=== PATIENT | female | born 1965 | race Caucasian/White ===

== ENCOUNTER 2020-02-07 10:54 | Emergency (ER) | payer OTHER, SELFPAY ==
[2020-02-07 11:07] VITALS: BP 128/77; PULSE 79; RESP 16; TEMP 37.1; O2SAT 100
--- NOTE | 2020-02-07 11:09 | ED.GENADULT ---
HPI - General Adult General Chief complaint: Skin/Abscess/Foreign Body Stated complaint: poison [place] Time Seen by Provider: 02/07/20 11:09 Source: patient Mode of arrival: ambulatory Limitations: no limitations History of Present Illness HPI narrative: 54-year-old female patient [facility] with complaints of a rash x2 days. Patient states that she was out pulling weeds and thinks she was exposed to poison [place]. Patient states she has had poison [place] before the past. Patient complains of an itchy rash noted to the left arm, the neck, behind bilateral ears, face, swelling to bilateral eyes, on the buttocks as well as behind bilateral legs. Patient states she has tried some steroid cream as well as some Benadryl for her symptoms so far. Related Data Allergies Allergy/AdvReac Type Severity Reaction Status Date / Time No Known Allergies Allergy Unknown Verified 02/07/20 11:13 Review of Systems Review of Systems: Narrative: CONSTITUTIONAL: Denies fever, chills, or sweats. EYES: Denies visual changes, redness, or discharge. ENT: Denies rhinorrhea, congestion, sore throat, or otalgia. CARDIOVASCULAR: Denies chest pain, palpitations, or edema. RESPIRATORY: Denies cough or dyspnea. GASTROINTESTINAL: Denies abdominal pain, nausea, vomiting, or diarrhea. GENITOURINARY: Denies dysuria or hematuria. SKIN: Positive rash with itching x2 days MUSCULOSKELETAL: Denies back pain, joint pain, or myalgia. NEUROLOGIC: Denies headache, numbness, or weakness. PSYCHIATRIC: Denies anxiety or depression. PMFSH Past Medical History Medical History Migraines Surgical History Surgical History History of orthopedic surgery Bilateral meniscus tears x2 surgeries Hx of tonsillectomy Comments At the time of my signature I agree with nursing past medical history, surgical, social, and family history. There is no relevant family history pertinent to the presenting complaint. Exam Narrative: Exam Narrative: GENERAL: Well-appearing, well-nourished, and in no acute distress. HEAD: Normocephalic, atraumatic. EYES: PERRLA and EOMI. patient does have some swelling noted to bilateral eyelids. ENT: Nares clear, no rhinorrhea or epistaxis. Mucous membranes moist. NECK: Supple. No lymphadenopathy CHEST: Clear to auscultation. No respiratory distress. HEART: Regular rate and rhythm. No murmur heard. Normal peripheral pulses. ABDOMEN: Soft, nontender, nondistended, normal active bowel sounds. EXTREMITIES: Normal range of motion. No edema. SKIN: Patient has a blotchy red rash noted to the left arm, similar rash noted behind right ear, right lateral side of the neck, and on the upper chest. NEURO: No focal deficits. Alert and oriented x3. Course Vital Signs Vital signs: Vital Signs Temperature 37.1 C 02/07/20 11:07 Pulse Rate 79 02/07/20 11:07 Respiratory Rate 16 02/07/20 11:07 Blood Pressure 128/77 02/07/20 11:07 Pulse Oximetry 100 02/07/20 11:07 Temperature 37.1 C 02/07/20 11:07 Pulse Rate 79 02/07/20 11:07 Respiratory Rate 16 02/07/20 11:07 Blood Pressure 128/77 02/07/20 11:07 Pulse Oximetry 100 02/07/20 11:07 Vital signs reviewed. Medical Decision Making Differential Diagnosis Differential Diagnosis: Differential diagnosis: Contact dermatitis, poison [place], poison [place], psoriasis, eczema, allergic reaction, drug reaction, scabies, tinea syphilis, lung disease, viral exanthema, pityriasis, erythema multiforme. Discussed with patient that it does appear that this is a poison [place] rash. Discussed with her that we will give her some oral steroid since it is on the face as well as some topical steroids that she can use on her extremities and trunk. Patient verbalized understanding denies any other questions or concerns at this time. Vital Signs Vital Signs: Vital Signs Temperature 37.1 C 02/06
== END 2020-02-07 11:20 | disposition home or self-care (01) ==
PROVIDERS: Emergency Provider Nurse Practitioner Family; PCP Family Medicine
DX: L23.7 Allergic contact dermatitis due to plants, except food (principal)
CPT/HCPCS: 99203; G0463

== ENCOUNTER 2022-05-03 15:58 | Emergency (ER) | payer OTHER, SELFPAY ==
[2022-05-03 16:02] VITALS: BP 135/71; PULSE 85; RESP 16; TEMP 36.7; O2SAT 100
--- NOTE | 2022-05-03 16:02 | ED.SKABFB ---
HPI - Skin/Abscess/Foreign Bdy General Chief complaint: Skin/Abscess/Foreign Body Stated complaint: Bee Sting left hand Time Seen by Provider: 05/03/22 16:02 Source: patient and RN notes reviewed History of Present Illness HPI narrative: Patient is a 56-year-old female who presents the urgent care with complaints of a wasp sting to the left hand. Patient states that happened last night and she did call her primary care doctor today. Patient was unaware but her primary care doctor did call her and triamcinolone cream as well as a Medrol Dosepak. Patient has not started the medication. Patient states she is been taking Benadryl for the itch and the using ice and elevation. States that the redness and swelling has gotten worse since last night. Denies any fever, chills, nausea or vomiting. Denies any shortness of breath or difficulty swallowing. Patient is right-hand dominant. no other acute complaints. No acute distress noted. Patient aware of the plan of care. Some parts of this dictation were generated by voice recognition software and may contain typographical and/or grammatical inaccuracies. Related Data Home Medications Medication Instructions Recorded Confirmed ibuprofen 800 mg tablet 1 tablet PO Q8H PRN pain 05/03/22 05/03/22 phentermine 30 mg capsule 1 cap PO DAILY 05/03/22 05/03/22 Allergies Allergy/AdvReac Type Severity Reaction Status Date / Time No Known Allergies Allergy Unknown Verified 05/03/22 16:02 Review of Systems Review of Systems: CONSTITUTIONAL: Denies fever, chills, or sweats. EYES: Denies visual changes, redness, or discharge. ENT: Denies rhinorrhea, congestion, sore throat, or otalgia. CARDIOVASCULAR: Denies chest pain, palpitations, or edema. RESPIRATORY: Denies cough or dyspnea. GASTROINTESTINAL: Denies abdominal pain, nausea, vomiting, or diarrhea. GENITOURINARY: Denies dysuria or hematuria. SKIN: Reports of redness and swelling to the left hand MUSCULOSKELETAL: Reports of redness, swelling and pain to the left hand due to bee sting NEUROLOGIC: Denies headache, numbness, or weakness. All other systems reviewed are negative, except as documented in HPI. [facility] Past Medical History Medical History (Updated 05/03/22 @ 16:24 by ROGER Clark) Migraines Surgical History Surgical History History of orthopedic surgery Bilateral meniscus tears x2 surgeries Hx of tonsillectomy Comments At the time of my signature, I reviewed and agree with the nursing past medical, surgical, social, and family history. There is no relevant family history pertinent to the patient complaint. Exam Narrative: GENERAL: This is a well-nourished, well-developed patient, in no apparent distress. HEAD: normocephalic, atraumatic. EYES: PERRL. Sclera clear/white. Vision is grossly intact. EARS: External ears normal NOSE: External nose normal with no obvious nasal discharge, nares without redness, no rhinorrhea. THROAT: Mucous membranes moist, posterior pharynx clear. Patent airway NECK: Neck supple CARDIOVASCULAR: Regular rate and rhythm without murmurs, gallops, or rubs. RESPIRATORY: Clear to auscultation. Breath sounds equal bilaterally. No wheezes, rales, or rhonchi. SKIN: See extremity. Warm, intact with no suspicious lesions or rash, good texture and turgor. NEURO: awake, alert, and oriented to person, place and time. There were no obvious focal neurologic abnormalities. EXTREMITIES: Moderate 2+ pitting edema to the left hand with redness extending to the mid left forearm. Range of motion to left hand decreased due to swelling and pain. Positive strong left radial pulse with capillary refill less than 2 seconds. Course Course Level of Care: Express Care Visit Vital Signs Vital signs: Vital Signs Temperature 98.1 F 05/03/22 16:02 Pulse Rate 85 05/03/22 16:02 Respiratory Rate 16 05/03/22 16:02 Blood Pressure 135/71 05/03/22
[2022-05-03] MEDS: predniSONE 20 MG TABLET 60 MG PO (16:21)
== END 2022-05-03 16:45 | disposition home or self-care (01) ==
PROVIDERS: Emergency Provider Nurse Practitioner Family; PCP Internal Medicine
DX: T63.461A Toxic effect of venom of wasps, accidental (unintentional), initial encounter (principal); L03.114 Cellulitis of left upper limb
CPT/HCPCS: 99213; G0463; J7512

== ENCOUNTER 2022-12-24 15:59 | Emergency (ER) | payer OTHER, SELFPAY ==
--- NOTE | 2022-12-24 16:02 | ED.GENADULT ---
HPI - General Adult General Chief complaint: Urogenital-Female Stated complaint: Urinary Problem Source: patient and RN notes reviewed History of Present Illness HPI narrative: 57-year-old female presents urgent care with complaints of dysuria this started this morning. Patient reports for urination, urinary frequency and urgency. Patient states she did take daughter's amoxicillin pills this morning. Denies any abdominal pain, fevers, chills, back pain or vomiting. Some parts of this dictation were generated by voice recognition software and may contain typographical and/or grammatical inaccuracies. Related Data Home Medications Medication Instructions Recorded Confirmed dextroamphetamine-amphetamine 5 mg 5 mg PO DIRECTED 12/24/22 12/24/22 tablet Allergies Allergy/AdvReac Type Severity Reaction Status Date / Time No Known Allergies Allergy Unknown Verified 12/24/22 16:07 Review of Systems Review of Systems: CONSTITUTIONAL: Denies fever, chills, or sweats. EYES: Denies visual changes, redness, or discharge. ENT: Denies otalgia and sore throat CARDIOVASCULAR: Denies chest pain, palpitations, or edema. RESPIRATORY: Denies cough or dyspnea. GASTROINTESTINAL: Denies abdominal pain, nausea, vomiting, or diarrhea. GENITOURINARY: Reports dysuria SKIN: Denies rash or itching. MUSCULOSKELETAL: Denies back pain, joint pain, or myalgia. NEUROLOGIC: Denies headache, numbness, or weakness. [facility] Past Medical History Medical History (Updated 12/24/22 @ 16:32 by Alice Torres APRN) Migraines Surgical History Surgical History History of orthopedic surgery Bilateral meniscus tears x2 surgeries Hx of tonsillectomy Comments At the time of my signature, I reviewed and agree with the nursing past medical, surgical, social, and family history. There is no relevant family history pertinent to the patient complaint. Exam Narrative: GENERAL: This is a well-nourished, well-developed patient, in no apparent distress. HEAD: normocephalic, atraumatic. EYES: PERRL. Sclera clear/white. Vision is grossly intact. EARS: External ears normal, auditory canals clear and without drainage, TMs normal without perforation. Hearing grossly intact. NOSE: External nose normal with no obvious nasal discharge, nares without redness, no rhinorrhea. THROAT: Mucous membranes moist, posterior pharynx clear. NECK: Neck supple, non-tender without lymphadenopathy, masses or thyromegaly. CARDIOVASCULAR: Regular rate and rhythm without murmurs, gallops, or rubs. RESPIRATORY: Clear to auscultation. Breath sounds equal bilaterally. No wheezes, rales, or rhonchi. GASTROINTESTINAL: Abdomen soft, non-tender, nondistended. Bowel sounds are active. No hepato-splenomegaly, or palpable masses. No guarding. SKIN: warm, intact with no suspicious lesions or rash, good texture and turgor. NEURO: awake, alert, and oriented to person, place and time. There were no obvious focal neurologic abnormalities. Course Course Level of Care: Express Care Visit Vital Signs Vital signs: Vital Signs Temperature 98.1 F 12/24/22 16:05 Pulse Rate 79 12/24/22 16:05 Respiratory Rate 18 12/24/22 16:05 Blood Pressure 129/74 12/24/22 16:05 Pulse Oximetry 100 12/24/22 16:05 Oxygen Delivery Room Air 12/24/22 16:05 Temperature 98.1 F 12/24/22 16:05 Pulse Rate 79 12/24/22 16:05 Respiratory Rate 18 12/24/22 16:05 Blood Pressure 129/74 12/24/22 16:05 Pulse Oximetry 100 12/24/22 16:05 Oxygen Delivery Room Air 12/24/22 16:05 Reviewed Medical Decision Making MDM Narrative Medical decision making narrative: Take antibiotics as directed. Get plenty of fluids. Go to the emergency department with any new or worsening symptoms. Follow-up with your primary care physician in 2-5 days. Differential Diagnosis Differential Diagnosis: UTI, cystitis, dysuria Vital Signs Vital Sig
[2022-12-24 16:05] VITALS: BP 129/74; PULSE 79; RESP 18; TEMP 36.7; O2SAT 100
== END 2022-12-24 16:38 | disposition home or self-care (01) ==
PROVIDERS: Emergency Provider Nurse Practitioner Family; PCP Internal Medicine
DX: N39.0 Urinary tract infection, site not specified (principal)
CPT/HCPCS: 81003; 87077; 87086; 87186; 99213; G0463

== ENCOUNTER 2024-06-10 18:03 | Emergency (ER) | payer OTHER, SELFPAY ==
[2024-06-10 18:14] VITALS: BP 136/60; PULSE 78; RESP 16; TEMP 36.4; O2SAT 100
--- NOTE | 2024-06-10 18:46 | ED.URI ---
HPI - URI/Sore Throat General Chief Complaint: Upper Respiratory Infection Stated Complaint: Shortness of Breath Time Seen by Provider: 06/10/24 18:59 Source: patient and RN notes reviewed Mode of arrival: ambulatory Limitations: no limitations History of Present Illness HPI Narrative: 58-year-old female presents with concern for one-week history of wheezing. Reports she has been using her albuterol inhaler 4-6 times daily without relief. Reports mild cough. Reports today she felt tired and generally did feel well. She reports she was recently diagnosed with asthma in [place] elicited complaint: cough Related Data Home Medications Medication Instructions Recorded Confirmed albuterol sulfate 90 mcg/actuation inhalation 06/10/24 aerosol inhaler fexofenadine 180 mg tablet mg 06/10/24 Allergies Allergy/AdvReac Type Severity Reaction Status Date / Time No Known Allergies Allergy Unknown Verified 12/24/22 16:07 Review of Systems Review of Systems: CONSTITUTIONAL: Reports malaise, fatigue. Denies chills, sweats, or fever. EYES: Denies visual changes, redness, or discharge. ENT: Denies rhinorrhea, congestion, sinus pain, otalgia and sore throat. CARDIOVASCULAR: Denies chest pain, palpitations, or edema. RESPIRATORY: Reports cough, wheezing, dyspnea. GASTROINTESTINAL: Denies abdominal pain, nausea, vomiting, diarrhea SKIN: Denies rash or itching. MUSCULOSKELETAL: Denies myalgia. NEUROLOGIC: Denies headache. All systems reviewed & are unremarkable except as noted in HPI and below PMFSH Past Medical History Medical History (Updated 06/10/24 @ 19:05 by Drea Wall NP) Migraines Surgical History Surgical History History of orthopedic surgery Bilateral meniscus tears x2 surgeries Hx of tonsillectomy Comments At time of signature, agree with nursing past medical, surgical, social and family history. There is no relevant family history pertinent to the presenting complaint Exam Narrative: GENERAL: Well-appearing, well-nourished, and in no acute distress. HEAD: Normocephalic EYES: PERRLA, conjunctivae clear ENT: Nares clear, turbinates edematous and erythematous, clear discharge. Mucous membranes moist. TM pearly hernandez with dull light reflex bilaterally; no tragal tenderness. Oropharynx not erythematous without lesions. Tonsils not enlarged and without exudate, no drooling, no hoarseness, no trismus, uvula midline. NECK: Supple. No lymphadenopathy CHEST: Scattered expiratory wheeze, otherwise Clear to auscultation, breath sounds equal. No rhonchi, rales, or stridor. No respiratory distress, speaks in full sentences. HEART: Regular rate and rhythm. No murmur heard. SKIN: Warm, dry, no rash. NEURO: Alert and oriented x3. PSYCH: Normal mood and affect Course Course Emergency Course: Patient is aware of diagnosis, understands and agrees to treatment plan. Anticipatory guidance given. Patient agrees to follow-up as directed and is aware of reasons to seek care at the emergency department. Portions of this record may have been created with voice recognition software Level of Care: Express Care Visit Vital Signs Vital signs: Vital Signs Temperature 97.5 F L 06/10/24 18:14 Pulse Rate 78 06/10/24 18:14 Respiratory Rate 16 06/10/24 18:14 Blood Pressure 136/60 06/10/24 18:14 Pulse Oximetry 100 06/10/24 18:14 Oxygen Delivery Room Air 06/10/24 18:14 Temperature 97.5 F L 06/10/24 18:14 Pulse Rate 78 06/10/24 18:14 Respiratory Rate 16 06/10/24 18:14 Blood Pressure 136/60 06/10/24 18:14 Pulse Oximetry 100 06/10/24 18:14 Oxygen Delivery Room Air 06/10/24 18:14 Reviewed. MDM - URI/Sore Throat MDM Narrative Medical decision making narrative: Differential diagnosis considered: Lopez virus, strep pharyngitis, allergic rhinitis, upper respiratory tract infection, sinusitis, rhinosinusitis, nasopharyngitis.
== END 2024-06-10 19:12 | disposition home or self-care (01) ==
PROVIDERS: Emergency Provider Nurse Practitioner; PCP Internal Medicine
DX: J45.901 Unspecified asthma with (acute) exacerbation (principal)
CPT/HCPCS: 99213; G0463

== ENCOUNTER 2024-08-15 12:05 | Emergency (ER) | payer OTHER, SELFPAY ==
[2024-08-15 12:10] VITALS: BP 144/84; PULSE 75; RESP 18; TEMP 37.3; O2SAT 99
--- NOTE | 2024-08-15 12:25 | ED.URI ---
HPI - URI/Sore Throat General Chief Complaint: Upper Respiratory Infection Stated Complaint: Wheezing and Shortness of Breath Time Seen by Provider: 08/15/24 12:25 Source: patient Mode of arrival: ambulatory Limitations: no limitations History of Present Illness HPI Narrative: 58-year-old female with a recent diagnosis of asthma presented for complaint of cough and wheezing worsening over the past week. Endorses occasional shortness of breath with exertion. She has been using albuterol inhaler but now Needs to picker and sorter load and unload a new prescription. Denies Nausea, vomiting, diarrhea, lethargy, fevers or chills. Says symptoms started due to seasonal allergies, nasal congestion is now improving. Related Data Home Medications Medication Instructions Recorded Confirmed albuterol sulfate 90 mcg/actuation inhalation 06/10/24 aerosol inhaler albuterol sulfate 2.5 mg/3 mL mg 08/15/24 (0.083 %) solution for nebulization fexofenadine 180 mg tablet mg 08/15/24 Allergies Allergy/AdvReac Type Severity Reaction Status Date / Time No Known Allergies Allergy Unknown Verified 12/24/22 16:07 Review of Systems Review of Systems: CONSTITUTIONAL: Denies body aches, fever, chills, or sweats. EYES: Denies visual changes, redness, or discharge. ENT: Denies rhinorrhea, congestion, sore throat, or otalgia. CARDIOVASCULAR: Denies chest pain, palpitations, or edema. RESPIRATORY: Reports cough, sob, wheezing. GASTROINTESTINAL: Denies abdominal pain, nausea, vomiting, or diarrhea. SKIN: Denies rash, itching, or wounds. MUSCULOSKELETAL: Denies back pain, joint pain, or myalgia. NEUROLOGIC: Denies headache, numbness, tingling, or weakness. All systems reviewed & are unremarkable except as noted in HPI and below PMFSH Past Medical History Medical History (Updated 08/15/24 @ 12:52 by Fanny Rascon APRN) Asthma Migraines Surgical History Surgical History History of orthopedic surgery Bilateral meniscus tears x2 surgeries Hx of tonsillectomy Comments At time of signature, I have reviewed and agree with nursing past medical, surgical, social and family history unless otherwise noted. Please see nursing chart for further information. There is no relevant family history pertinent to the presenting complaint Exam Narrative: GENERAL: Well-appearing, in no acute distress. EYES: EOMI. No redness or drainage. Conjunctivae normal. ENT: Mucous membranes pink and moist. No rhinorrhea. TMs normal bilaterally. Throat normal. Uvula midline. NECK: Normal AROM. Supple. CHEST: No respiratory distress. Wheezing to Left langley. No cough. Speaks full sentences. HEART: Regular rate and rhythm. No murmur appreciated. ABDOMEN: Soft, nontender, nondistended, normal active bowel sounds. SKIN: Warm, dry, no rash. Capillary refill normal. Normal skin turgor. NEURO: Alert and oriented x3. Gait steady. PSYCH: Normal affect. Course Course Emergency Course: Patient is aware of diagnosis, understands and agrees to treatment plan. Anticipatory guidance given. Patient agrees to follow-up as directed and is aware of reasons to seek care at the emergency department. Portions of this record may have been created with voice recognition software Level of Care: Express Care Visit Vital Signs Vital signs: Vital Signs Temperature 99.1 F 08/15/24 12:10 Pulse Rate 75 08/15/24 12:10 Respiratory Rate 18 08/15/24 12:10 Blood Pressure 144/84 H 08/15/24 12:10 Pulse Oximetry 99 08/15/24 12:10 Oxygen Delivery Room Air 08/15/24 12:10 Temperature 99.1 F 08/15/24 12:10 Pulse Rate 75 08/15/24 12:10 Respiratory Rate 18 08/15/24 12:10 Blood Pressure 144/84 H 08/15/24 12:10 Pulse Oximetry 99 08/15/24 12:10 Oxygen Delivery Room Air 08/15/24 12:10 MDM - URI/Sore Throat MDM Narrative Medical decision making narrative: Discussed physical exam fin
== END 2024-08-15 12:39 | disposition home or self-care (01) ==
PROVIDERS: Emergency Provider Nurse Practitioner Family; PCP Internal Medicine
DX: J40 Bronchitis, not specified as acute or chronic (principal)
CPT/HCPCS: 99213; G0463

== ENCOUNTER 2025-07-10 11:00 | Emergency (ER) | payer OTHER, SELFPAY ==
--- OUTSIDE RECORDS SUMMARY | 2025-07-10 11:03 | XMS_ITS | Encounter Summary ---
Author Organization [facility] Address [address] [place] [address] Phone Care Team Providers Care Vacuum Cleaner Repair Person Name Role Phone Darin Billings MD Primary Care Provider [phone] Andie Salazar APRN, [employer]URNER Unavailable + [phone] Reason for Visit * Reason Comments Medication Refill Encounter Details Date Type Department Care Team (Late st Contact Info) Description 06/13/2024 Refill [facility] - Internal Medicine - [place] [address] [place] [phone] Darin Billings MD [address] [place] [address] Medication Refill Social History Tobacco Use Types Packs/Day Years Used Date Smoking Tobacco: Never Passive Smoke Exposure: Past Smokeless Tobacco: Never Alcohol Use Standard Drinks/Week Comments Yes 0 (1 standard drink = 0.6 oz pur e alcohol) [facility] Utilities Answer Date Recorded In the past 12 months has [employer] gas, oil, or water company threatened to shut off services in your home? No 12/09/2023 Social Connection and Isolation Panel Answer Date Recorded In a typical week, how many times do you talk on the phone with family, friends, or neighbors? More than three times a week 12/09/2023 How often do you get togethe r with friends or relatives? More than three times a week 12/09/2023 How often do you attend [facility] or christian services? More than 4 times per year 12/09/2023 Do you belong to any clubs o r organizations such as gnosticist groups, unions, fraternal or athletic groups, or school groups? Yes 12/09/2023 How often do you attend meet ings of the clubs or organizations you belong to? More than 4 times per year 12/09/2023 Are you , , di vorced, , never , or living with a partner? 12/09/2023 AUDIT-C Answer Date Recorded Q1: How often do you have a drink containing alc ohol? Monthly or less 12/09/2023 Q2: How many drinks containi ng alcohol do you have on a typical day when you are drinking? 1 or 2 12/09/2023 Q3: How often do you have si x or more drinks on one occasion? Less than monthly 12/09/2023 Overall Financial Resource Strain (CARDIA) Answe r Date Recorded How hard is it for you to pa y for the very basics like food, housing, medical care, and heating? Not hard at all 12/09/2023 PHQ-2 Answer Date Recorded Total Score - Questions 1-9 0 04/2024 [facility] - Occupational Stress Questionnaire Answer Date Recorded Do you feel stress - tense, restless, nervous, or anxious, or unable to sleep at night because your mind is troubled all the time - these days? Not at all 12/09/2023 Exercise Vital Sign Answer Date Recorde d On average, how many days pe r week do you engage in moderate to strenuous exercise (like a brisk walk)? 1 day 12/09/2023 On average, how many minutes do you engage in exercise at this level? 30 min 12/09/2023 Hunger Vital Sign Answer Date Recorded Within the past 12 months, y ou worried that your food would run out before you got the money to buy more. Never true 12/09/19 24 Within the past 12 months, t he food you bought just didn't last and you didn't have money to get more. Never true 12/09/2023 PRAPARE - Transportation Answer Date Re corded In the past 12 months, has l ack of transportation kept you from medical appointments or from getting medications? No 03/2024 In the past 12 months, has l ack of transportation kept you from meetings, work, or from getting things needed for daily living? No 12/09/2023 Housing Stability Vital Sign Answer Gil e Recorded In the last 12 months, was t here a time when you were not able to pay the mortgage or rent on time? No 12/09/2023 In the last 12 months, how many places have you lived? 3 12/09/2023 In the last 12 months, was t here a time when you did not have a steady place to sleep or slept in a fdc (including now)? No 12/09/2023 Sexually Active Control Partners Comments Yes Comments No Sex and Gender Information Value Date Recorded Sex Assigned at Not on file Legal Sex Female 9:29 PM CDT Gender Identity Not on file Sexual Orientation Not on file documented as of this encounter Miscellaneous Notes * Telephone Encounter - Darin Billings MD - 06/15/2024 10:28 AM CDT Rx already sent * Telephone Encounter - Drea Dudley RN - 06/15/2024 8:56 AM CDT Medication failed the protocol, provider to review and approve the medication order if appropriate. Requested Prescriptions Pending Prescriptions Disp Refills ibuprofen (MOTRIN) 800 MG Tablet [Pharmacy Med Name: IBUPROFEN 800 MG TABLET] 90 Tablet 2 Sig: Take 1 Tablet by mouth every 8 hours as needed for Mild or more severe pain. NSAIDs Protocol Failed - 06/13/2024 11:45 AM Failed - Normal serum creatinine in past 12 months No results found for: CREATININE Failed - AST less than 55 or ALT less than 90 in past 12 months No results found for: SGOTAST No results found for: SGPTALT Failed - HGB greater than 10 or HCT greater than 30 in past 12 months No results found for: HEMOGLOBIN, HEMATOCRIT Passed - Visit with relevant provider in past 12 months or upcoming 90 days Recent Visits Date Type Provider Dept 03/09/24 [facility]23 Office Visit Darin Billings MD [facility] 09/02/23 Office Visit Darin Billings MD [facility] [place] Showing recent visits within past 365 days and meeting all other requirements Today's Visits Date Type Provider Dept 06/15/24 Appointment Darin Billings MD [facility] Showing today's visits and meeting all other requirements Future Appointments No visits were found meeting these conditions. Showing future appointments within next 90 days and meeting all other requirements Passed - No matching NSAID med order in past 45 days No matching medication orders between 05/01/2024 8:56 AM and 06/15/2024 8:56 AM documented in this encounter Plan of Treatment Upcoming Encounters Date Type Department Care Team (Late st Contact Info) Description 07/22/2025 1:40 PM CDT Office Visit [facility] - Primary Care - [place] [address] [place] [address] Darin Billings MD [address] [place] [address] documented as of this encounter Visit Diagnoses Not on filedocumented in this encounter Additional Health Concerns Assessment Noted Time PHQ-9 Depression Total Score: 0 03/09/20 24 8:45 AM CDT documented as of this encounter Care Teams Vacuum Cleaner Repair Person Relationship Specialty Start Date End Date Darin Billings MD PCP - General Internal Medicine 07/04/20 Andie Salazar APRN, RETORT KIL[facility]NER [address] [place] [address] Nurse Practitioner Advanced Practice Nurse 11/07/22 documented as of this encounter
--- OUTSIDE RECORDS SUMMARY | 2025-07-10 11:03 | XMS_ITS | Encounter Summary ---
Author Organization [facility] Address 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
--- OUTSIDE RECORDS SUMMARY | 2025-07-10 11:03 | XMS_ITS | Encounter Summary ---
Author Organization [facility] Address [address] [place] [address] Care Team Providers Care Rail Maintenance Worker Name Role Phone Unavailable Primary Care Provider Unavailabl e Encounter Details Date Type Department Care Team (Late st Contact Info) Description 07/12/2004 Outpatient Historical [facility] Maternal and Ground Floor [facility] [address] [facility] [place] [address] Linda Valentin MD [address] [place] [address] Social History Tobacco Use Types Packs/Day Years Used Date Smoking Tobacco: Never Assessed Comments Unknown Sex and Gender Information Value Date Recorded Sex Assigned at Not on file Legal Sex Female 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
--- OUTSIDE RECORDS SUMMARY | 2025-07-10 11:03 | XMS_ITS | Encounter Summary ---
Author Organization [facility] Address 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
--- OUTSIDE RECORDS SUMMARY | 2025-07-10 11:03 | XMS_ITS | Clinical Summary ---
Author Organization [facility] Address [address] [place] [address] Phone Care Team Providers Care Technical Testing Engineer Name Role Phone Unavailable Primary Care Provider Unavailabl e Social History Tobacco Use Types Packs/Day Years Used Date Smoking Tobacco: Never Assessed Comments Unknown Sex and Gender Information Value Date Recorded Sex Assigned at Not on file Legal Sex Female 5:01 AM APPLICATION COORDINATOR Gender Identity Not on file Sexual Orientation Not on file Plan of Treatment Health Maintenance Due Date Last Done Comments DTAP/TDAP/TD VACCINES (1 - Tdap) 1984 HEPATITIS B VACCINES (1 of 3 - 19+ 3-dose series) 02/1984 HPV/Cotest (21-29) 1986 CERVICAL CANCER SCREENING 1995 HPV/Cotest (30-65) 1995 PAP SMEAR 1995 BREAST CANCER SCREENING 2005 COLORECTAL SCREENING 2010 Colorectal Cancer Screening 2010 FIT-DNA Q 3 years 2010 FIT/FOBT Q 1 year 2010 Flex Sig/CT Colonography Q 5 years 2010 ZOSTER VACCINE (1 of 2) 2015 INFLUENZA VACCINE (#1) 2025
--- OUTSIDE RECORDS SUMMARY | 2025-07-10 11:03 | XMS_ITS | Encounter Summary ---
Author Organization [facility] Address [address] [place] [address] Care Team Providers Care Flowers Salesperson Name Role Phone Unavailable Primary Care Provider Unavailabl e Encounter Details Date Type Department Care Team (Late st Contact Info) Description 06/09/[address] 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
--- OUTSIDE RECORDS SUMMARY | 2025-07-10 11:03 | XMS_ITS | Encounter Summary ---
Author Organization [facility] Address [address] [place] [address] Phone Care Team Providers Care Kiln Furniture Saw Tender Name Role Phone Darin Billings MD Primary Care Provider Andie Salazar APRN, [employer] Unavailable + [phone] Reason for Visit * Reason Comments Medication Refill Encounter Details Date Type Department Care Team (Late st Contact Info) Description 10/06/2020 [facility] - [place] [address] [place] [phone] Darin Billings MD [address] [place] [address] Medication Refill Social History Tobacco Use Types Packs/Day Years Used Date Smoking Tobacco: Never Smokeless Tobacco: Never PHQ-2 Answer Date Recorded Total Score - Questions 1-9 0 08/04 Comments No Sex and Gender Information Value Date Recorded Sex Assigned at Not on file Legal Sex Female 9:29 PM CDT Gender Identity Not on file Sexual Orientation Not on file documented as of this encounter Miscellaneous Notes * Telephone Encounter - Chayito Ernst RN - 10/06/2020 7:48 AM CST Please review and sign. ER BREWERY documented in this encounter Plan of Treatment Upcoming Encounters Date Type Department Care Team (Late st Contact Info) Description 07/22/2025 1:40 PM CDT Office Visit [facility] - Primary Care - [place] [address] [place] [phone] Darin Billings MD [address] [place] [address] documented as of this encounter Visit Diagnoses Not on filedocumented in this encounter Additional Health Concerns Infection Onset Date Last Indicated Resolved Time COVID - 19 10/30/2020 10/30/2020 10/31/2020 1:36 PM PUMPER BREWERY COVID - 19 10/04/2021 10/04/2021 10/04/2021 11:1 3 AM PUMPER BREWERY COVID - 19 10/04/2021 10/17/2021 10/19/2021 1:33 PM PUMPER BREWERY COVID - 19 Confirmed 10/17/2021 10/17/2021 022 12:16 AM PUMPER BREWERY Assessment Noted Time PHQ-9 Depression Total Score: 0 08/15/20 20 10:00 AM CDT documented as of this encounter Care Teams Kiln Furniture Saw Tender Relationship Specialty Start Date End Date Darin Billings MD PCP - General Internal Medicine 07/04/20 Andie Salazar APRN, INSPECTOR [employer] [address] [place] [address] Nurse Practitioner Advanced Practice Nurse 11/07/22 documented as of this encounter
--- OUTSIDE RECORDS SUMMARY | 2025-07-10 11:03 | XMS_ITS | Clinical Summary ---
Author Organization [facility] Address [address] [place] [address] Care Team Providers Care Diving Judge Name Role Phone Darin Billings MD Primary Care Provider [phone] Andie Salazar APRN, HOSPITAL ACCOUNT MANAGER Unavailable [phone]- [phone] Allergies No known active allergies Medications predniSONE (DELTASONE) 20 MG Tablet Take 20 mg by mouth daily. 06/11/20 24 Active albuterol (PROVENTIL, VENTOLIN) (2.5 MG/3ML) 0.083% Nebulizer Soln 3 mL by Nebulization route every 6 hours as needed for Wheezing or Shortness of Breath. DX- Br. Asthma J45.3 360 mL 5 06/15/20 24 Active albuterol 108 (90 Base) MCG/ACT Aerosol Solution TAKE 2 PUFFS BY INHALATION EVERY 4 HOURS NEEDED FOR WHEEZING OR COUGH. 18 g 2 07/27/20 24 Active montelukast (SINGULAIR) 10 MG Tablet Take 1 Tablet by mouth every evening. 90 Tablet 1 09/21/20 24 Active fluticasone-salme terol (Wixela Inhub) 250-50 MCG/ACT AEROSOL POWDER, BREATH ACTIVATED take 1 Puff by inhalation in the morning and at bedtime. 69 Each 5 09/21/20 24 Active sertraline (ZOLOFT) 25 MG Tablet TAKE 1 TABLET BY MOUTH EVERY DAY 90 Tablet 1 12/24/19 25 Active fexofenadine (DEBO) 180 MG Tablet Take 1 Tablet by mouth Daily as needed for Allergies. 90 Tablet 1 02/27/20 25 Active triamcinolone (KENALOG) 0.1 % Cream Application Site: apply to rash areas bid prn for flare up 30 g 1 04/05/20 25 Active olopatadine (PATANOL) 0.1 % Solution Place 1 Drop in affected eye(s) 2 times daily as needed for Allergies. 5 mL 3 04/05/20 25 Active tirzepatide-weigh t management (Zepbound) 2.5 MG/0.5ML Solution Auto-injector 2.5 mg by Subcutaneous route once a week. 2 mL 1 04/05/20 25 Active ibuprofen (MOTRIN) 800 MG Tablet TAKE 1 TABLET BY MOUTH EVERY 8 HOURS NEEDED FOR MILD OR MORE SEVERE PAIN. 90 Tablet 2 04/27/20 25 Active amphetamine-dextr oamphetamine (Adderall) 5 MG TabletIndications :Attention deficit hyperactivity disorder (ADHD), predominantly inattentive type Take 1 Tablet by mouth 2 times daily. 60 Tablet 06/10/20 25 Active Active Problems Problem Noted Date Diagnosed Date Generalized anxiety disorder 09/21/2024 Mild persistent asthma without complication 04/2024 Allergic rhinitis 04/12/2021 Attention deficit hyperactiv ity disorder (ADHD), predominantly inattentive type 08/15/2020 Dysthymic disorder 08/15/2020 Generalized osteoarthritis 08/15/2020 Low back pain 05/12/2019 Resolved Problems Problem Noted Date Diagnosed Date Resolved Date Mild intermittent asthma without complication 01/15/20 23 03/09/2024 Encounters Date Type Department Care Team Description 06/09/2025 [facility]ill [facility] - Primary Care - [place] [address] [place] [address] Darin Billings MD Medication Refill 04/27/2025 Refill [facility] - Internal Medicine - [place] [address] [place] [address] Darin Billings MD Medication Refill from Last 3 Months Immunizations Immunization Administration Dates Next Due Influenza Vaccine greater than 3 yrs 07/14/2019 Pneumococcal conjugate PCV20 , polysaccharide [id number] conjugate, adjuvant, PF 03/09/2024 Family History Medical History Relation Name Comments High Cholesterol Father Relation Name Status Comments Brother Alive Father Alive Mother Sister Alive Social History Tobacco Use Types Packs/Day Years Used Date Smoking Tobacco: Never Passive Smoke Exposure: Past Smokeless Tobacco: Never Tobacco Cessation:Counseling Given: No Alcohol Use Standard Drinks/Week Comments Not Currently 0 (1 standard drink = 0.6 oz pur e alcohol) [facility] Utilities Answer Date Recorded In the past 12 months has th e electric, gas, oil, or water company threatened to [...] week 12/09/2023 How often do you attend chur ch or taoism services? More than 4 times per year 12/09/2023 Do you belong to any clubs o r organizations such as yazdanism groups, unions, fraternal or athletic groups, or [...] Recorded Total Score - Questions 1-9 0 12/2024 [facility] Occupat ional Health - Occupational Stress [...] place to sleep or slept in a jail (including now)? No 12/09/2023 Sexually Active Control Partners Comments Yes Comments No Sex and Gender Information Value Date Recorded Sex Assigned at Not on file Legal Sex Female 9:29 PM CDT Gender Identity Not on file Sexual Orientation Not on file Last Filed Vital Signs Vital Sign Reading Time Taken Comments Blood Pressure 110/74 04/05/2025 10:31 AM CDT Pulse 66 04/05/2025 10:31 AM CDT Temperature 36.3 C (97.4 F) 04/05/2025 10:31 AM CDT Respiratory Rate 12 04/05/2025 10:31 AM CDT Oxygen Saturation 98% 04/05/2025 10:31 AM CDT Inhaled Oxygen Concentration - - Weight 78.6 kg (173 lb 3.2 oz) 04/05/2025 10:31 AM CDT Height 162.6 cm (5' 4) 04/05/2025 10:31 AM CDT Body Mass Index 29.73 04/05/2025 10:31 AM CDT Plan of Treatment Upcoming Encounters Date Type Department Care Team (Late st Contact Info) Description 07/22/2025 1:40 PM CDT [facility] Visit [facility] - Primary Care - [place] [address] [place] [id number] Darin Billings MD [address] [place] [address] Health Maintenance Due Date Last Done Comments Hepatitis C Virus (HCV) Screening 1965 TdaP Immunization 1965 Hepatitis B Immunization (1 of 3 - 19+ 3-dose series) 1984 Cologuard 2010 Colonoscopy 2010 Colorectal Cancer Screening 2010 Immunochemical Fecal Occult Blood 2010 Zoster Immunization (1 of 2) 2015 Mammogram 05/22/2022 05/22/2021 SARS-COV-2 Immunization ( season) 2025 Pap Smear 11/27/2027 11/27/2024 Cervical Cancer Screening (CCS) 11/27/2029 HPV/Cotest 11/27/2029 11/27/2024 Respiratory Syncytial Virus (RSV) Immunization (Adult) (1 - 1-dose 75+ series) 2040 Influenza Immunization Discontinued 07/14/2019 Pneumococcal Immunization (5 0+ years) Completed 03/09/2024 Pneumococcal Immunization Combined Discontinued 2023 Human Papillomavirus (HPV) Immunization Aged Out No longer eligible b ased on patient's age to complete this topic Meningococcal Immunization (ACWY) Aged Out No longer eligible based on patient's age to complete this topic Rotavirus Immunization Aged Out No lo nger eligible based on patient's age to complete this topic Procedures Procedure Name Priority Date/Time Associated Diagnosis Comments HUMAN PAPILLOMA VIRUS (HPV) Routine 11/27/2024 9:10 AM SCRAP HOIST OPERATOR Encounter for well woman exam with routine gynecological exam Screening for malignant neoplasm of cervix PATHOLOGY CYTOLOGY GRADING CLERK Routine 11/27/2024 9:10 AM SCRAP HOIST OPERATOR Encounter for well woman exam with routine gynecological exam Screening for malignant neoplasm of cervix IRVING SCREENING BILATERAL DIGITAL W CAD W SLOANE Routine 05/22/2021 9:01 AM CDT Breast cancer screening by mammogram from Last 3 Months or Most Recently Relevant to Health Maintenance Results * PATHOLOGY CYTOLOGY GRADING CLERK (11/27/2024 9:10 AM SCRAP HOIST OPERATOR) SPECIMEN ADEQUACY Satisfactory for evaluation. Endocervical/transf ormation zone component is absent. 12/01/2024 4:22 PM SCRAP HOIST OPERATOR [facility] DESCRIPTIVE DIAGNOSIS NEGATIVE FOR INTRAEPITHELIAL LESIONS OR MALIGNANCY. 12/01/2024 4:22 PM SCRAP HOIST OPERATOR [facility] at 1622 SCRAP HOIST OPERATOR OTHER FINDINGS Atrophic hormonal pattern with abundant inflammatory cells. 12/01/2024 4:22 PM SCRAP HOIST OPERATOR [facility] Automated Examination Analysis of this sample has been assisted by an automated imaging and review system ([employer] System, [employer], [place], [place]). This case is further evaluated and finalized by a home care and home health aides teacher and/or pathologist. 12/01/2024 4:22 PM SCRAP HOIST OPERATOR [facility] Disclaimer The PAP smear is a screening test designed to detect cancerous or precancerous cells of the uterine cervix. It is one of the best means available for detection of cervical cancer but still carries an inherent false-negative rate. The consequences of a false-negative PAP result can be minimized by adhering to current screening guidelines. The following are general guidelines recommended by the ACS, ASCP, ASCCP, and ACOG: PAP testing is recommended every three years for women 21-29, Co-Testing, a PAP test in conjunction with an HPV (Human Papillomavirus) test for women ages 30-65, and no PAP or HPV testing for women under the age of 21 or older than 65 unless clinically indicated. 12/01/2024 4:22 PM SCRAP HOIST OPERATOR [facility] Case Report Gynecologic Cytology Report Case: [id number] Authorizing Provider: Evelyne Reid APRN, FINANCIAL CENTER MANAGER Collected: 11/27/2024 09:10 AM Ordering Location: [facility] - Received: 11/27/2024 09:10 AM Internal Medicine - [place] First Screen: PauletteEmy ware Specimen: TP Screen, Cervix/Endocervix 12/01/2024 4:22 PM SCRAP HOIST OPERATOR [facility] Other CERVIX UTERI STRUCTURE / Unknown Non-Phlebotomy Collection / Unknown 11/27/2024 9:10 AM SCRAP HOIST OPERATOR 11/27/2024 9:10 AM SCRAP HOIST OPERATOR us Evelyne Reid APRN, CNP PATHOLOGY/CYTOLOGY ORDER APRIL Final Result [facility] [address] [place] [address], * HUMAN PAPILLOMA VIRUS (HPV) (11/27/2024 9:10 AM SCRAP HOIST OPERATOR) HPV TYPE 16 NEGATIVE NEGATIVE 11/30/2024 4:14 PM SCRAP HOIST OPERATOR [facility] Comment: A negative high-risk HPV result does not exclude the possibility of future cytologic HSIL or underlying CIN2-3 or cancer. The presence of PCR inhibitors may cause false negative or invalid results. If concentrations of whole blood in the sample exceed 10% (dark red or brown coloration) in PreservCyt solution, there is a likelihood of obtaining a false-negative result. HPV TYPE 18 NEGATIVE NEGATIVE 11/30/2024 4:14 PM SCRAP HOIST OPERATOR [facility] Comment: A negative high-risk HPV result does not exclude the possibility of future cytologic HSIL or underlying CIN2-3 or cancer. The presence of PCR inhibitors may cause false negative or invalid results. If concentrations of whole blood in the sample exceed 10% (dark red or brown coloration) in PreservCyt solution, there is a likelihood of obtaining a false-negative result. HPV OTHER HIGH RISK TYPES, PCR NEGATIVE NEGATIVE 11/30/2024 4:14 PM SCRAP HOIST OPERATOR [facility] Comment: The following Other High Risk types were not detected: 31, 33, 35, 39, 45, 51, 52, 56, 58, 59, 66, and 68. A negative high-risk HPV result does not exclude the possibility of future cytologic HSIL or underlying CIN2-3 or cancer. The presence of PCR inhibitors may cause false negative or invalid results. If concentrations of whole blood in the sample exceed 10% (dark red or brown coloration) in PreservCyt solution, there is a likelihood of obtaining a false-negative result. HPV ORDER BE USED FOR SCREENING OR DIAGNOSTIC SCREENING 11/30/2024 4:14 PM SCRAP HOIST OPERATOR [facility] Other Non-Phlebotomy Collection / Unknown 11/27/2024 9:10 AM SCRAP HOIST OPERATOR 11/27/2024 9:10 AM SCRAP HOIST OPERATOR Narrative [facility] - 11/30/2024 4:14 PM SCRAP HOIST OPERATOR This test was performed using JACK 5800 Real Time PCR. us Evelyne Reid APRN, FINANCIAL CENTER MANAGER LAB SEND OUTS Final Re sult [facility] [address] [place] [address], [facility] [address] [place] [address] * IRVING SCREENING BILATERAL DIGITAL W CAD W SLAONE (05/22/2021 9:01 AM CDT) Anatomical Region Laterality Modality breast Bilateral Mammography 05/22/2021 8:56 AM CDT Narrative 05/23/2021 6:35 AM CDT - IRVING SCREENING BILATERAL DIGITAL W CAD W SLOANE BILATERAL DIGITAL SCREENING MAMMOGRAM 3D/2D WITH CAD WITH MEDIOLATERAL OBLIQUE CRANIOCAUDAL: 05/22/2021 The study was acquired using digital technology and interpreted from soft copy. Current study was also evaluated with ICAD version 7.2. 2D digital mammographic views, as well as 3D digital tomosynthesis were performed in the CC and MLO projections. CLINICAL: Baseline screening. Patient has no complaints. No personal history of cancer. No family history of breast cancer. COMPARISONS: No prior exams were available for comparison. BREAST TISSUE:There are scattered fibroglandular densities in both breasts. FINDINGS: No significant masses, calcifications, or other findings are seen in either breast. IMPRESSION: BI-RAD 1 NEGATIVE There is no mammographic evidence of malignancy. A 1 year screening mammogram is recommended. The patient has been or will be contacted. The patient will be entered into a reminder system with a target due date of 1 year for her next screening exam. Electronically signed by: Guerda Kelly M.D. ab/penrad:05/22/2021 16:53:02 Nremt(s): DANY NguyenR)(M), [facility]: Normal Exam Reading location: [facility] BI-RADS: 1 Negative Procedure Note Guerda Kelly MD - 05/23/2021 - IRVING SCREENING BILATERAL DIGITAL W CAD W SLOANE BILATERAL DIGITAL SCREENING MAMMOGRAM 3D/2D WITH CAD WITH MEDIOLATERAL OBLIQUE CRANIOCAUDAL: 05/22/2021 The study was acquired using digital technology and interpreted from soft copy. Current study was also evaluated with J&J SolutionsD version 7.2. 2D digital mammographic views, as well as 3D digital tomosynthesis were performed in the CC and MLO projections. CLINICAL: Baseline screening. Patient has no complaints. No personal history of cancer. No family history of breast cancer. COMPARISONS: No prior exams were available for comparison. BREAST TISSUE:There are scattered fibroglandular densities in both breasts. FINDINGS: No significant masses, calcifications, or other findings are seen in either breast. IMPRESSION: BI-RAD 1 NEGATIVE There is no mammographic evidence of malignancy. A 1 year screening mammogram is recommended. The patient has been or will be contacted. The patient will be entered into a reminder system with a target due date of 1 year for her next screening exam. Electronically signed by: Guerda Kelly M.D. ab/penrad:05/22/2021 16:53:02 Nremt(s): DANY NguyenR)(M), [facility] letter sent: Normal Exam Reading location: [facility] BI-RADS: 1 Negative Darin Billings MD [facility] ORDERABLES Final Result from Last 3 Months or Most Recently Relevant to Health Maintenance Insurance [facility] OAP Care Teams Diving Judge Relationship Specialty Start Date End Date Darin Billings MD PCP - General Internal Medicine 07/04/20 Andie Salazar, SWITCH REPAIRER, HOSPITAL ACCOUNT MANAGER [address] [place] [address] Nurse Practitioner Advanced Practice Nurse 11/07/22
--- OUTSIDE RECORDS SUMMARY | 2025-07-10 11:03 | XMS_ITS | Clinical Summary ---
Author Organization [address] [facility] [place] Address [address] [place] [id number] Care Team Providers Care Bread Dumper Name Role Phone Darin Billings MD Primary Care Provider [phone]- [phone] Allergies No known active allergies Medications aspirin 325 mg EC tablet Take 1 tablet by mouth every 12 hours until finished 30 tablet 8 Active Additional Information Patient not taking.Reported on 12/16/2021 HYDROcodone-addison taminophen (NORCO) 5-325 mg per tabletIndicatio ns:Pain Take 1-2 tablets by mouth every 4-6 hours as needed for pain 13 tablet 8 Active Additional Information Patient not taking.Reported on 11/20/2022 ascorbic acid (VITAMIN C) 500 mg tablet,chewable Take 1 tablet by mouth 2 times daily until finished 60 tablet/chew tab 8 Active Additional Information Patient not taking.Reported on 12/16/2021 dextroamphetami ne-amphetamine (ADDERALL) 5 mg tablet Take 5 mg by mouth 2 (two) times a day 1 Active fexofenadine (DEBO) 180 mg tablet Take 180 mg by mouth daily as needed 1 Active ibuprofen (ADVIL,MOTRIN) 800 mg tablet TAKE ONE TABLET BY MOUTH EVERY 8 HOURS NEEDED FOR HEADACHE 1 Active Active Problems Problem Noted Date Diagnosed Date Bilateral primary osteoarthritis of knee 023 Complex tear of medial meniscus as current injur y 07/17/2018 Overview (07/17/2018): Added automatically from request for surgery [id number] Tear of lateral meniscus of right knee, current 07/17/2018 Overview (07/17/2018): Added automatically from request for surgery [id number] Surgical History Surgery Date Site/Laterality Comments KNEE ARTHROSCOPY Bilateral SECTION x 2 TONSILLECTOMY TUBAL LIGATION 11/04/2003 - 11/03/2004 Medical History Medical History Date Comments Migraines PONV (postoperative nausea and vomiting) Family History Medical History Relation Name Comments Cancer Mother Diabetes Mother Relation Name Status Comments Mother Social History Tobacco Use Types Packs/Day Years Used Date Smoking Tobacco: Never Smokeless Tobacco: Never Alcohol Use Standard Drinks/Week Comments Yes 0 (1 standard drink = 0.6 oz pur e alcohol) occasionally Comments No Sex and Gender Information Value Date Recorded Sex Assigned at Not on file Legal Sex Female 3:10 PM TELEVISION CABLE INSTALLER Gender Identity Not on file Sexual Orientation Not on file Obstetrics History Last Filed Vital Signs Vital Sign Reading Time Taken Comments Blood Pressure 148/82 11/20/2022 10:28 AM TELEVISION CABLE INSTALLER Pulse 70 11/20/2022 10:28 AM TELEVISION CABLE INSTALLER Temperature 36.6 C (97.9 F) 12/16/2021 4:03 PM TELEVISION CABLE INSTALLER Respiratory Rate 15 12/16/2021 4:03 PM TELEVISION CABLE INSTALLER Oxygen Saturation 98% 12/16/2021 4:03 PM TELEVISION CABLE INSTALLER Inhaled Oxygen Concentration - - Weight 82.6 kg (182 lb) 11/20/2022 10:28 AM TELEVISION CABLE INSTALLER Height 165.1 cm (5' 5) 11/20/2022 10:28 AM TELEVISION CABLE INSTALLER Body Mass Index 30.29 11/20/2022 10:28 AM TELEVISION CABLE INSTALLER Plan of Treatment Health Maintenance Due Date Last Done Comments Cervical Cancer Screening 1965 Colon Cancer Screening-Colonoscopy 1965 Depression Screening 1965 Hepatitis C Screening 1965 DTaP/Tdap/Td Vaccine (1 - Tdap) 1976 Hepatitis B Screening 1983 Regular Well Visit/Exam 18-64 1983 Zoster Vaccine (1 of 2) 2015 Breast Cancer Screening-Mammogram 05/22/2022 021 Influenza Vaccine (#1) 2025 07/14/2019 Pneumococcal vaccine <65 Aged Out No longer eligible based on patient's age to complete this topic Insurance [facility] [id number] Care Teams Bread Dumper Relationship Specialty Start Date End Date Darin Billings MD [address] [place] [address] PCP - General 06/18/18
[2025-07-10 11:04] VITALS: BP 137/78; PULSE 101; RESP 18; TEMP 36.9; O2SAT 100
--- NOTE | 2025-07-10 11:17 | ED.URI ---
HPI - URI/Sore Throat General Chief Complaint: Upper Respiratory Infection Stated Complaint: sinus infection Time Seen by Provider: 07/10/25 11:05 Source: patient and RN notes reviewed Mode of arrival: ambulatory Limitations: no limitations History of Present Illness HPI Narrative: 59-year-old female presents Express Care complaining of upper respiratory symptoms for 3 days. Patient reports having congestion, runny nose, earache, and slight cough. Patient denies any sore throat, chest pain, shortness of breath, nausea, vomiting, or any other symptoms. Patient has taken ibuprofen and zinc to help with symptoms. Related Data Home Medications ?Medication ?Instructions ?Recorded ?Confirmed ?Last Taken ?Type fexofenadine 180 mg tablet mg 08/15/24 Unknown History dextroamphetamine-amphetamine 5 mg 07/10/25 Unknown History tablet ibuprofen 800 mg tablet mg 07/10/25 Unknown History sertraline 25 mg tablet mg 07/10/25 Unknown History Allergies Allergy/AdvReac Type Severity Reaction Status Date / Time No Known Allergies Allergy Unknown Verified 07/10/25 11:07 Review of Systems Review of Systems: CONSTITUTIONAL: Denies fever, chills, body aches, or sweats. EYES: Denies visual changes, redness, or discharge. ENT: Positive for congestion, or otalgia. Negative for rhinorrhea or sore throat. CARDIOVASCULAR: Denies chest pain, palpitations, or edema. RESPIRATORY: Positive for cough. Negative for dyspnea or wheezing. GASTROINTESTINAL: Denies abdominal pain, nausea, vomiting, or diarrhea. GENITOURINARY: Denies dysuria or hematuria. SKIN: Denies rash or itching. MUSCULOSKELETAL: Denies back pain, joint pain, or myalgia. NEUROLOGIC: Denies headache, numbness, or weakness. PSYCHIATRIC: Denies anxiety or depression. All other systems reviewed are negative, except as documented in HPI. [facility] Past Medical History Medical History Asthma Migraines Surgical History Surgical History History of orthopedic surgery Bilateral meniscus tears x2 surgeries Hx of tonsillectomy Comments At the time of my signature, I reviewed and agree with the nursing past medical, surgical, social, and family history. There is no relevant family history pertinent to the patient complaint. Exam Narrative: GENERAL: This is a well-nourished, well-developed adult, in no apparent distress. They are non ill-appearing, nontoxic appearing. HEAD: normocephalic, atraumatic. EYES: Sclera clear/white. Vision is grossly intact. Conjunctiva normal bilaterally. Extraocular movements intact. EARS: External ears normal, auditory canals clear and without drainage, TMs without erythema or perforation. Hearing grossly intact. NOSE: External nose normal with no obvious nasal discharge, nasal turbinates erythematous, no rhinorrhea. THROAT: Mucous membranes moist, posterior pharynx edematous without redness without exudate. Uvula is midline. Postnasal drip present. NECK: Neck supple, non-tender without lymphadenopathy, masses or thyromegaly. CARDIOVASCULAR: Regular rate and rhythm without murmurs, gallops, or rubs. RESPIRATORY: Clear to auscultation. Breath sounds equal bilaterally. No wheezes, rales, or rhonchi. SKIN: warm, Dry, intact with no suspicious lesions or rash, good texture and turgor. NEURO: awake, alert, and oriented to person, place and time. There were no obvious focal neurologic abnormalities. EXTREMITIES: No joint tenderness, effusion, or edema noted. BACK: Nontender without deformity. Course Course Emergency Course: Portions of this record may have been created with voice recognition software Level of Care: Express Care Visit Vital Signs Vital signs: Vital Signs Temperature 98.4 F 07/10/25 11:04 Pulse Rate 101 H 07/10/25 11:04 Respiratory Rate 18 07/10/25 11:04 Blood Pressure 137/78 07/10/25 11:04 Pulse Oximetry 100 07/10/25 11:04 Oxygen Delivery Room Air 07/10/25 11:04 Temperature 98.4 F 07/10/25 11:04 Pulse Rate 101 H 07/10/25 11:04 Respiratory Rate 18 07/10/25 11:04 Blood Pressure 137/78 07/10/25 11:04 Pulse Oximetry 100 07/10/25 11:04 Oxygen Delivery Room Air 07/10/25 11:04 Reviewed MDM - URI/Sore Throat MDM Narrative Medical decision making narrative: Patient likely has a viral upper respiratory infection. Patient is not happy that she is not getting antibiotics or steroids. Educated patient on these medications and her condition and that they are not recommended at this time. Patient eloped after seen provider and did not receive written discharge instructions. Discussed physical exam findings. Advised supportive measures and signs/symptoms to go to the ER. Pt is appropriate for outpt treatment and f/u. Differential Diagnosis Differential diagnosis: Likely upper respiratory infection, sinusitis, viral infection and pharyngitis Critical Care Time Critical Care Time Critical Care Time: No Discharge Plan Discharge Clinical Impression: Upper respiratory infection Qualifiers: URI type: unspecified viral URI Qualified Code(s): J06.9 - Acute upper respiratory infection, unspecified Patient Disposition: Elopement After Seen by Prov Patient Language: Polish Prescriptions: No Action fexofenadine 180 mg tablet ibuprofen 800 mg tablet sertraline 25 mg tablet dextroamphetamine-amphetamine 5 mg tablet Follow-up/Referrals: Manuelito,Darin Quiles MD [Primary Care Provider, Unknown] Time of Disposition: 11:23
--- NOTE | 2025-07-10 11:24 | PC.NURSE ---
PT seen by provider didnt agree with care plan stated was a waste of time. Pt left after seeing provider.
== END 2025-07-10 11:24 | disposition left against medical advice (07) ==
PROVIDERS: PCP Internal Medicine
DX: K06.9 Disorder of gingiva and edentulous alveolar ridge, unspecified (principal); J45.909 Unspecified asthma, uncomplicated
CPT/HCPCS: 99211; G0463